=== PATIENT | male | born 1985 | race Caucasian/White ===

== ENCOUNTER → 2019-06-21 08:54 | Outpatient (CLI) | payer OTHER, SELFPAY ==
[2019-06-21 10:44] LABS: AST(SGOT) 48 U/L (15-37); Alanine Aminotransfer ALT/SGPT 75 U/L (16-61); Albumin, Serum 4.3 g/dL (3.2-5.0); Alkaline Phosphatase 64 U/L (45-117); Anion Gap 6 (5-15); BUN 23 mg/dL (7-18); BUN/Creat Ratio 20.9 RATIO (10-20); Bilirubin, Direct 0.29 mg/dL (0.00-0.30); Calcium,Total 9.1 mg/dL (8.5-10.1); Chloride 105 mmol/L (98-107); Cholesterol 147 mg/dL (200); EST Glomerular Filtration Rate 81 mL/min (>60); Est Glom Filt Rate - Afr Amer 97 mL/min (>60); Globulin 3.6 g/dL (2.2-4.2); Glucose 95 mg/dL (74-106); High Density Lipoprotein 45 mg/dL; PSA,Total- Diagnostic 0.81 ng/mL (0.0-4.0); Potassium 3.9 mmol/L (3.5-5.1); Protein, Total 7.9 g/dL (6.4-8.2); Sodium Level 139 mmol/L (136-145); Triglycerides 45 mg/dL; Very Low Density Lipoprotein 9 mg/dL (5-40)
== END ==
PROVIDERS: PCP Family Medicine; Referring Provider Family Medicine; Visit Provider Family Medicine
DX: E29.1 Testicular hypofunction (principal)
CPT/HCPCS: 36415; 80048; 80061; 80076; 84153; 84403

== ENCOUNTER → 2020-01-03 11:42 | Outpatient (CLI) | payer OTHER, SELFPAY ==
[2020-01-03 16:32] LABS: AST(SGOT) 65 U/L (15-37); Alanine Aminotransfer ALT/SGPT 72 U/L (16-61); Albumin, Serum 4.4 g/dL (3.2-5.0); Alkaline Phosphatase 58 U/L (45-117); Anion Gap 5 (5-15); BUN 27 mg/dL (7-18); BUN/Creat Ratio 23.7 RATIO (10-20); Bilirubin, Direct 0.32 mg/dL (0.00-0.30); Calcium,Total 9.2 mg/dL (8.5-10.1); Chloride 104 mmol/L (98-107); Cholesterol 126 mg/dL (200); Creatinine, Serum 1.14 mg/dL (0.70-1.30); EST Glomerular Filtration Rate 77 mL/min (>60); Est Glom Filt Rate - Afr Amer 93 mL/min (>60); Globulin 3.2 g/dL (2.2-4.2); Glucose 87 mg/dL (74-106); High Density Lipoprotein 38 mg/dL; PSA,Total- Diagnostic 0.68 ng/mL (0.0-4.0); Potassium 3.7 mmol/L (3.5-5.1); Protein, Total 7.6 g/dL (6.4-8.2); Sodium Level 138 mmol/L (136-145); Triglycerides 71 mg/dL; Very Low Density Lipoprotein 14 mg/dL (5-40)
== END ==
PROVIDERS: PCP Family Medicine; Referring Provider Family Medicine; Visit Provider Family Medicine
DX: E29.1 Testicular hypofunction (principal)
CPT/HCPCS: 36415; 80048; 80061; 80076; 84153; 84403

== ENCOUNTER → 2020-06-26 07:09 | Outpatient (CLI) | payer OTHER, SELFPAY ==
[2020-06-26 10:52] LABS: AST(SGOT) 49 U/L (15-37); Alanine Aminotransfer ALT/SGPT 70 U/L (16-61); Albumin, Serum 4.2 g/dL (3.2-5.0); Alkaline Phosphatase 56 U/L (45-117); Anion Gap 4 (5-15); BUN 23 mg/dL (7-18); BUN/Creat Ratio 22.8 RATIO (10-20); Bilirubin, Direct 0.28 mg/dL (0.00-0.30); Calcium,Total 8.5 mg/dL (8.5-10.1); Chloride 108 mmol/L (98-107); Cholesterol 128 mg/dL (200); Creatinine, Serum 1.01 mg/dL (0.70-1.30); EST Glomerular Filtration Rate 88 mL/min (>60); Est Glom Filt Rate - Afr Amer 107 mL/min (>60); Globulin 2.9 g/dL (2.2-4.2); Glucose 92 mg/dL (74-106); High Density Lipoprotein 44 mg/dL; PSA,Total- Diagnostic 0.86 ng/mL (0.0-4.0); Potassium 3.9 mmol/L (3.5-5.1); Protein, Total 7.1 g/dL (6.4-8.2); Sodium Level 141 mmol/L (136-145); Triglycerides 51 mg/dL; Very Low Density Lipoprotein 10 mg/dL (5-40)
== END ==
PROVIDERS: PCP Family Medicine; Referring Provider Family Medicine; Visit Provider Family Medicine
DX: E78.6 Lipoprotein deficiency (principal); E29.1 Testicular hypofunction
CPT/HCPCS: 36415; 80048; 80061; 80076; 84153; 84403

== ENCOUNTER 2021-11-27 10:37 | Emergency (ER) | payer OTHER, SELFPAY ==
[2021-11-27 10:38] VITALS: BP 152/65; PULSE 57; RESP 16; TEMP 35.6; O2SAT 98; BMI 29.5
[2021-11-27 10:42] VITALS: O2SAT 98
--- NOTE | 2021-11-27 11:11 | ED.VIS.FALL ---
HPI HPI - Fall History of Present Illness Chief Complaint: Fall Informant: patient Occured/Mechanism Occurred: Today Fall from Height (ft): 5 feet Usually ambulates: Without assistance Pain/Injury Pain Location: upper extremity (Right shoulder) Quality of Pain: Stabbing Worsened by: Movement Relieved by: Rest Associated Symptoms Associated Symptoms: Positive for Loss of consciousness; Negative for Parasthesias, Weakness, Loss of function, Inability to ambulate or Amnesia Length of loss of consciousness: 10 to 15 seconds Narrative Narrative: Patient presents after a fall that occurred today. Patient states he was standing on a ladder when he fell. Patient states he was 5 feet in the air when he fell. Patient states he landed on his right side. Patient did hit his head. Patient admits to a loss of consciousness. states it was approximately 10 to 15 seconds. Patient states his pain is stabbing. Patient states it is worse with movement and with breathing. Patient denies any other injuries. Tetanus Immunization: Unknown PFSH PFS Medical History no medical history no medical history Home Medications NK 11/27/21 [History Last Taken Unknown] Allergy/AdvReac Type Severity Reaction Status Date / Time No Known Allergies Allergy Verified 11/27/21 10:37 Surgical History no surgical history no surgical history Social History Smoking Status: Never smoker ROS ROS ED Constitutional Constitutional ED: Denies chills or fever(s) Eyes Eyes: Denies blurry vision or change in vision ENT ENT ED: Denies rhinorrhea or sore throat Cardiovascular Cardiovascular: Reports chest pain; Denies palpitations Respiratory/Chest Respiratory/Chest: Reports dyspnea; Denies cough Gastrointestinal Gastrointestinal: Reports nausea; Denies vomiting Genitourinary Genitourinary ED: Denies dysuria or hematuria Musculoskeletal Musculoskeletal: Reports back pain and neck pain Integumentary Denies abscess or rash Neurologic Neurologic: Denies headache(s) or weakness Allergic/Immunologic Allergic/Immunologic ED: Denies mouth swelling or urticaria EXAM Physical Exam Const Vital Signs: 11/27/21 10:38 11/27/21 10:42 11/27/21 12:28 Temperature 96.1 F L Temperature Source Temporal Pulse Rate 57 L Respiratory Rate 16 Respiratory Effort Short of Breath Respiratory Depth Normal Respiratory Pattern Normal Blood Pressure 152/65 H Blood Pressure Mean 94 Pulse Ox 98 98 100 Oxygen Delivery Method Room Air Room Air Nasal Cannula Oxygen Flow Rate (L/min) 2 11/27/21 12:28 11/27/21 13:00 11/27/21 14:00 Temperature Temperature Source Pulse Rate 62 68 61 Respiratory Rate 20 H 22 H 22 H Respiratory Effort Respiratory Depth Respiratory Pattern Blood Pressure 183/92 H 141/73 H 132/64 H Blood Pressure Mean 122 95 86 Pulse Ox 98 100 100 Oxygen Delivery Method Nasal Cannula Nasal Cannula Nasal Cannula Oxygen Flow Rate (L/min) 2 2 2 11/27/21 15:00 Temperature Temperature Source Pulse Rate 62 Respiratory Rate 21 H Respiratory Effort Respiratory Depth Respiratory Pattern Blood Pressure 142/70 H Blood Pressure Mean 94 Pulse Ox 100 Oxygen Delivery Method Nasal Cannula Oxygen Flow Rate (L/min) 2 Positive well nourished and well developed General Appearance ED: well developed and NAD HEENT Reports normocephalic atraumatic Eyes PERRL and EOMs intact bilaterally Resp normal respiratory effort, no retractions and clear to auscultation bilaterally Cardio regular rate and regular rhythm GI non-tender and non-distended Neuro oriented x3, CN's II-XII intact bilaterally, moves all extremities, no focal motor deficits and no sensory deficits noted [place] Coma Scale: document GCS findings Spontaneous Obeys Commands Oriented 15 Sensorium / Orientation: alert Motor Exam: strength 5/5 throughout Psych mental status grossly normal and thought process normal MDM MDM MDM Narrative Medical decision making narrative: Patient was given morphine initially. X-rays of the right shoulder were obtained. There are 3 views. On my interpretation, there is no acute fracture or dislocation. There is a type III separation of the right acromioclavicular joint. Radiologist also interpreted the x-rays and agrees. CT scan of the brain was obtained. There is no acute intracranial abnormality. This was interpreted by the radiologist and reviewed by myself. CT scan of the cervical spine was obtained. There is no acute fracture of the cervical spine. There is no spondylolisthesis. Back there is a small right pneumothorax and pulmonary contusion of the right lung apex. There is fractures of the right first and second ribs. There is diffuse subcutaneous emphysema. This was interpreted by the radiologist and reviewed by myself. CT scan of the chest was obtained. There is a small right apical pneumothorax with pulmonary contusion in the right upper lobe. There are first and second rib fractures. There is diffuse subcutaneous emphysema on the right side. This was interpreted by the radiologist and reviewed by myself. Patient was given repeat dose of Dilaudid here. Case was discussed with Dr. Paiz. She states that the patient will need to be transferred to a trauma facility. Case was discussed with Dr. Reid at [facility]. He excepted the patient to be transferred there. Patient and family understand and are agreeable with the plan. Patient was given a repeat dose of Dilaudid prior to transfer. All questions were answered. Radiography Diagnostic Testing: Clinical Impression(s) from Imaging Studies Shoulder X-Ray 11/27/21 11:16 IMPRESSION: Type III separation of the right acromioclavicular joint. Nondisplaced right first and second rib fractures. Subcutaneous emphysema overlying the right cervical region and right thorax. Electronically Signed: Jagjit Fabian MD at 12:53 EDT , Brain CT 11/27/21 12:10 IMPRESSION: Normal unenhanced CT scan of the brain. Electronically Signed: Jagjit Fabian MD at 12:31 EDT , Cervical Spine CT 11/27/21 12:10 IMPRESSION: Diffuse subcutaneous emphysema overlying the entire cervical region extending into the upper thorax worse on the right side. Small right pneumothorax with a pulmonary contusion in the right lung apex. Findings suggestive of fractures of the right first and second ribs. Electronically Signed: Jagjit Fabian MD at 12:36 EDT , Chest CT 11/27/21 12:10 IMPRESSION: Small right apical pneumothorax with pulmonary contusion in the right upper lobe. Right first and second rib fractures. Diffuse subcutaneous emphysema worse on the right side as described. Electronically Signed: Jagjit Fabian MD at 12:46 EDT , Discharge Plan Triage Chief Complaint: Fall ED Provider: Tito Fournier Dx/Rx/DC Orders Clinical Impression: Pneumothorax, closed, traumatic, Subcutaneous emphysema, Multiple rib fractures involving first rib Prescriptions: No Action NK Primary Care Provider: Winston Clay Referrals: Winston Clay MD [Primary Care Provider] - Disposition Disposition: Acute Care Hospital Discharge Location: [facility] Discharge Date/Time: 11/27/21 15:54
--- NOTE | 2021-11-27 11:16 | RAD_ITS ---
STUDY: X-RAY - RIGHT SHOULDER REASON FOR EXAM: Male, 36 years old. Injury/Pain TECHNIQUE: 2 view(s) of the shoulder. COMPARISON: None. FINDINGS: Diffuse subcutaneous emphysema overlying the lower right cervical region and right chest wall.. Nondisplaced right first and second ribs. Normal glenohumeral articulation. There is widening of the AC joint, with displacement of the clavicle, consistent with a Type III acromioclavicular joint separation. Normal acromion. Normal humeral head and visualized proximal humerus. The soft tissue structures are unremarkable. Normal visualized pulmonary apex. RAD/Shoulder min 2 Views IMPRESSION: Type III separation of the right acromioclavicular joint. Nondisplaced right first and second rib fractures. Subcutaneous emphysema overlying the right cervical region and right thorax. Electronically Signed: Jagjit Fabian MD at 12:53 EDT ,
--- NOTE | 2021-11-27 12:10 | CT_ITS ---
STUDY: CT CHEST WITHOUT CONTRAST REASON FOR EXAM: Male, 36 years old. TRAUMA RADIATION DOSAGE (If Supplied By Facility): CTDIvol = ( 18.41 ) mGy, DLP = ( 915.67 ) mGycm TECHNIQUE: Transaxial imaging was performed without the administration of intravenous contrast material. Multiplanar coronal and sagittal images were reformatted. Individualized dose optimization techniques were used for this CT. COMPARISON: No relevant priors. FINDINGS: CHEST Diffuse subcutaneous emphysema overlying the lower cervical region extending into the anterior bilateral chest dickinson worse on the right side. 5% right apical pneumothorax. Focal contusion in the anterior right upper lobe measuring 2 cm. Mild degree of bibasilar increased markings suggestive of atelectasis. Normal heart and pericardium. Small amount of air is seen in the superior aspect of the mediastinum. Normal hilar regions. Normal unenhanced pulmonary arteries. Normal aorta arch and descending thoracic aorta. Nondisplaced right first and second rib fractures. Multilevel degenerative changes of the dorsal spine with anterior spondylosis. Mild decrease in the T12 vertebrae as well as the T9 and T10 vertebrae. There is no demonstrated abnormality of the visualized upper abdomen. CT/Chest without Contrast IMPRESSION: Small right apical pneumothorax with pulmonary contusion in the right upper lobe. Right first and second rib fractures. Diffuse subcutaneous emphysema worse on the right side as described. Electronically Signed: Jagjit Fabian MD at 12:46 EDT ,
--- NOTE | 2021-11-27 12:10 | CT_ITS ---
STUDY: CT BRAIN WITHOUT CONTRAST REASON FOR EXAM: Male, 36 years old. History of fall from a ladder. Loss of consciousness. RADIATION DOSAGE (If Supplied By Facility): CTDIvol = ( 44.99 ) mGy, DLP = ( 863.60 ) mGycm TECHNIQUE: Transaxial CT imaging of the brain was performed without administration of intravenous contrast material. Individualized dose optimization techniques were used for this CT. COMPARISON: No relevant priors. FINDINGS: Normal soft tissue structures. Normal calvarium. Normal size ventricles and extra-axial spaces for the patient''s age. Normal white matter tracts of the cerebral hemispheres. Normal basal ganglia and thalami. Normal brainstem. Normal cerebellum. There is no intracranial hemorrhage. There are no findings of an acute ischemic infarction. There is a 1 cm polyp along the medial aspect of the left maxillary sinus. CT/Brain/Head without Contrast IMPRESSION: Normal unenhanced CT scan of the brain. Electronically Signed: Jagjit Fabian MD at 12:31 EDT ,
--- NOTE | 2021-11-27 12:10 | CT_ITS ---
STUDY: CT CERVICAL SPINE WITHOUT CONTRAST REASON FOR EXAM: Male, 36 years old. History of fall from a ladder. Loss of consciousness. RADIATION DOSAGE (If Supplied By Facility): CTDIvol = ( 18.41 ) mGy, DLP = ( 915.67 ) mGycm TECHNIQUE: High resolution transaxial imaging was performed without contrast material. Sagittal and coronal images were reconstructed. Individualized dose optimization techniques were used for this CT. COMPARISON: None FINDINGS: Diffuse subcutaneous emphysema overlying the entire cervical region extending into the anterior chest wall bilaterally worse on the right side. There is evidence of a small right pneumothorax. There is evidence of a 1.9 cm x 1.3 cm rounded density in the anterior lateral aspect of the right lung apex suggests a possible pulmonary contusion. There is also evidence of a pneumo mediastinum as seen in the upper images of the thorax. There is evidence of a fracture of the right first and second ribs. Normal craniovertebral junction. Normal anterior atlantoaxial articulation. Normal odontoid process. Normal cervical lordosis. Normal vertebral bodies and posterior osseous elements. C2-3: Normal endplates. Normal disc height and morphology. Normal central canal and intervertebral neuroforamina. C3-4: Normal endplates. Normal disc height and morphology. Normal central canal and intervertebral neuroforamina. C4-5: Normal endplates. Normal disc height and morphology. Normal central canal and intervertebral neuroforamina. C5-6: Normal endplates. Normal disc height and morphology. Normal central canal and intervertebral neuroforamina. C6-7: Normal endplates. Normal disc height and morphology. Normal central canal and intervertebral neuroforamina. C7-T1: Normal endplates. Normal disc height and morphology. Normal central canal and intervertebral neuroforamina. Normal visualized soft tissue structures. CT/Spine Cervical without Contras IMPRESSION: Diffuse subcutaneous emphysema overlying the entire cervical region extending into the upper thorax worse on the right side. Small right pneumothorax with a pulmonary contusion in the right lung apex. Findings suggestive of fractures of the right first and second ribs. Electronically Signed: Jagjit Fabian MD at 12:36 EDT ,
[2021-11-27] MEDS: Morphine 4 MG/ML Syringe IV (12:23)
[2021-11-27 12:28] VITALS: BP 183/92; PULSE 62; RESP 20; O2SAT 100; O2SAT 98
[2021-11-27 13:00] VITALS: BP 141/73; PULSE 68; RESP 22; O2SAT 100
[2021-11-27] MEDS: HYDROmorphone 1 MG/ML Syringe 0.5 MG IV (13:27)
[2021-11-27 14:00] VITALS: BP 132/64; PULSE 61; RESP 22; O2SAT 100
--- NOTE | 2021-11-27 14:32 | ED.RN ---
BLS UNIT HERE FOR ANOTHER PATIENT AND WAS PULLED FOR THIS PATIENT TO TRANSPORT. 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 SOLOMON ADVISED PATIENT CAN BE REMOVED FROM [employer] TELE[employer] FOR TRANSPORT. CREW SPOKE WITH RANGE MOUNTER AND RANGE MOUNTER DENIED BLS TRANSPORT. ALS CREW TO ARRIVE IN 1 HR.
[2021-11-27 15:00] VITALS: BP 142/70; PULSE 62; RESP 21; O2SAT 100
[2021-11-27] MEDS: HYDROmorphone 0.5 MG/0.5 ML SYRINGE IV (15:35)
== END 2021-11-27 15:54 | disposition short-term general hospital (02) ==
LOC: ED 11:27
PROVIDERS: Emergency Provider Emergency Medicine; PCP Family Medicine; Visit Provider Emergency Medicine
DX: S27.321A Contusion of lung, unilateral, initial encounter (principal); T79.7XXA Traumatic subcutaneous emphysema, initial encounter; S06.9X1A Unspecified intracranial injury with loss of consciousness of 30 minutes or less, initial encounter; S22.41XA Multiple fractures of ribs, right side, initial encounter for closed fracture; S27.0XXA Traumatic pneumothorax, initial encounter; S43.101A Unspecified dislocation of right acromioclavicular joint, initial encounter; W11.XXXA Fall on and from ladder, initial encounter
CPT/HCPCS: 70450; 71250; 72125; 73030; 96374; 96375; 96376; 99284; A4216

== ENCOUNTER 2022-01-27 15:30 | Outpatient (RCR) | payer OTHER, SELFPAY ==
--- NOTE | 2022-01-14 15:32 | HP.PTEVAL_ITS ---
Patient's Visit Information RICHARD HUYNH is a 36 year old M referred to Physical Therapy by JESSICA BELTRAN with a diagnosis of R shoulder pain. Date of Evaluation: 01/14/22 Physical Therapist: Roel Avalos, PT, ATC - Visit Plan Frequency: 1x/Week Duration: 2 Weeks Plan: Issue and instruct nex appt on HEP of rot cuff strengthening and scap stab ex's - Subjective Pt reports he was injured six weeks ago when a ladder he was standing on fell out from underneath him. Pt reports this resulted in a R shoulder, punctured lung, and broken ribs. Pt reports his ribs were the worst to heal. Pt reports he has had shoulder pain in the past from lifting heavy weight. Pt reports he is R hand dominant. 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 No tingling or numbness in R UE at this time. Pt reports he is limited with lilting weights at this time secondary to R shoulder pain. Pt reports occasional sleep difficulty at this time secondary to pain. Pt reports his R shoulder will occasionally pop and click on him. 0/10 pain at rest, 2/10 pain at worst (while he is trying to sleep and working out) - Pain R shoulder Pain Intensity (Out of 10): 0 Pain Intensity Range: 2 - Objective Neuro: B UE sensation is WNL to light touch. Palpation: Minor pain on AC joint. step off deformity present. Pain on ant GHJ. Thunking present with protrusion of R shoulder. ROM: R shoulder flex and abd ar limited at endrange. All other motions are WNL. MMT: B shoulders are 5/5 throughout. Special tests: Pos HK, neers, and apprehension tests - Balance/Special Test Scores Quick DASH Score: 25.0000 - Goals Goal 1:: I with HEP in 1 visit - Rehabilitation Potential Physical Therapy Diagnosis: Pt has R shoulder pain and limited ROM secondary to internal derrangement of the R shoulder Rehabilitation Potential: Good - Anticipated Interventions Patient/Client Instruction: Educate patient on: Condition, Plan of Care For the Purpose of:: To improve self management Therapeutic Exercise to Include: Strength training, Endurance training, Active ROM, Scapular Strength/Stabilization For the Purpose of:: To decrease pain, To increase ROM, To improve muscle performance and motor function Cryotherapy (ice pack, ice massage): Yes For the Purpose of:: To decrease pain Thank you for the opportunity to evaluate your patient. For Medicare and Medicare HMO plans, please review the plan of care and approve it. It will need to be FAXED BACK to us at [phone] for Medicare purposes. For Medicare only, by signing this I certify the plan of care. Please let me know if there are questions or concerns regarding this plan of care. Physician Signature: Date:
--- NOTE | 2022-04-07 14:56 | HP.PTDCNRP_ITS ---
RICHARD HUYNH was seen in my office for initial evaluation on 01/14/22. The following Plan of Care was established for this patient: Initial Frequency: 1x/Week Initial Duration: 2 Weeks Patient/Client Instruction: Educate patient on: Condition, Plan of Care For the Purpose of:: To improve self management Therapeutic Exercise to Include: Strength training, Endurance training, Active ROM, Scapular Strength/Stabilization For the Purpose of:: To decrease pain, To increase ROM, To improve muscle performance and motor function Cryotherapy (ice pack, ice massage): Yes For the Purpose of:: To decrease pain This patient was last seen in our office . Pertinent comments regarding their Physical therapy will appear below: Pt was treated for R shoulder pain for 2 PT visits through the date of 01/27/22. Pt has not returned through this date and is discontinued at this time. At this point I will be discontinuing this patient from physical therapy. I wo uld be happy to see this patient again in the future if found appropriate by the physician. Thank you! Roel Avalos, PT, ATC Balance/Gait/Functional tests - Balance/Special Test Scores Quick DASH Score: 25.0000
== END 2022-01-27 19:00 | disposition home or self-care (01) ==
LOC: PT 15:30
PROVIDERS: PCP Family Medicine
DX: S43.101D Unspecified dislocation of right acromioclavicular joint, subsequent encounter (principal); X58.XXXD Exposure to other specified factors, subsequent encounter
CPT/HCPCS: 97110; 97161